=== PATIENT | male | born 1990 | race African-American/Black ===

== ENCOUNTER 2021-05-21 14:24 | Emergency (ER) | payer SELFPAY ==
--- NOTE | 2021-05-21 16:42 | EDM.PDOC ---
ED HPI GENERAL MEDICAL PROBLEM - General Chief Complaint: Lower Extremity Injury/Pain Stated Complaint: RT HEAL MEHREEN Time Seen by Provider: 05/21/21 14:32 Source of Information: Reports: Patient History Limitations: Reports: No Limitations - History of Present Illness INITIAL COMMENTS - FREE TEXT/NARRATIVE: HISTORY AND PHYSICAL: History of present illness: Patient is a 31-year-old male who presents to the emergency room with complaints of right heel pain. He denies any injury, trauma or falls. Denies any numbness, tingling, saddle paresthesia or weakness. He is able to bear weight and perform routine ADLs. Patient denies any fever, chills, headache, change in vision, syncope or near syncope. Denies any chest pain, back pain, shortness of breath or cough. Denies any GI or symptoms. No recent travel or sick contacts. Review of systems: As per history of present illness and below otherwise all systems reviewed and negative. Past medical history: As per history of present illness and as reviewed below otherwise noncontributory. Surgical history: As per history of present illness and as reviewed below otherwise noncontributory. Social history: See social history for further information Family history: As per history of present illness and as reviewed below otherwise noncontributory. Physical exam: General: Well developed and well nourished. Alert and orientated x 3. Nontoxic in appearance and in no acute distress. Vital signs are stable and have been reviewed by me. Nursing notes were reviewed. HEENT: Atraumatic, normocephalic, pupils equal and reactive bilaterally, negative for conjunctival pallor or scleral icterus, mucous membranes moist, TMs normal bilaterally, throat clear, neck supple, nontender, trachea midline. No drooling or trismus noted. No meningeal signs. No hot potato voice noted. Lungs: Clear to auscultation bilaterally. No wheezes, rales, or rhonchi. Chest nontender. Normal work of breathing, no accessory muscles used. Heart: S1S2, regular rate and rhythm without overt murmur, gallops, or rubs. No JVD. No peripheral edema Abdomen: Soft, nondistended, nontender. Skin: Intact, warm, dry. No lesions or rashes noted. Hematologic: No petechiae or purpra. Mucosa appropriate color and normal nail bed color and refill. Extremities: Atraumatic, moves all extremities per self without difficulty or deficits, negative for cords or calf pain. Pinpoint tenderness of medial tubercle. Neurovascular unremarkable. Neuro: Awake, alert, oriented. Cranial nerves II through XII unremarkable. Cerebellum unremarkable. Motor and sensory unremarkable throughout. Exam nonfocal. Psychiatric: Mood and affect are appropriate. Normal thought process. Answering questions appropriately. Please note that the patient was seen and evaluated during the 2019 SARS-CoV-2 novel coronavirus pandemic period. Community viral transmission is ongoing at time of this encounter and the emergency department is operating under pandemic response procedures. Medical Decision Making: Negative for fracture or significant bone lesion. Soft tissues radiographically unremarkable. We discussed plantar fasciitis and treatment options. I have bipin ked with the patient about today's findings, in addition to providing specific details for plan of care. Reassessment at the time of disposition demonstrates that the patient is in no acute distress. The patient is stable for discharge, counseling was provided and we discussed in great detail signs and symptoms that would prompt them to return to the Emergency Department. Medication, follow up a nd supportive care measures were reviewed and discussed. Voices understanding and is agreeable to plan of care. Denies any further questions or concerns at this time. Diagnostics: Calcaneus x-ray Therapeutics: None Prescription: Diclofenac Impression: Plantar fasciitis Plan: 1. You were evaluated today on an emergent basis. Your x-ray shows no evidence of fracture or heel spur. Rest, ice, and supportive shoes with heel/arch support inserts. 2. You can alternate Tylenol and ibuprofen as needed for pain and fever management. 3. We encourage you to follow up with Podiatry in the next few days for re- evaluation and further care/management. 4. If your symptoms should worsen, new symptoms develop or any of the signs and symptoms we discussed should arise please return to the emergency room or call 911 (if needed). Definitive disposition and diagnosis as appropriate pending reevaluation and review of above. Foot Pain Score (Numeric/FACES): 4 - Related Data Allergies Allergy/AdvReac Type Severity Reaction Status Date / Time No Known Allergies Allergy Verified 05/21/21 16:00 Home Meds: Home Meds Diclofenac Sodium [Voltaren] 75 mg PO BIDMEALS PRN #30 tab.cr 05/21/21 [Rx] Social & Family History - Tobacco Use Second Hand Smoke Exposure: No - Caffeine Use Caffeine Use: Reports: None - Recreational Drug Use Recreational Drug Use: No Review of Systems - Review of Systems Review Of Systems: Comprehensive ROS is negative, except as noted in HPI. ED EXAM, GENERAL - Physical Exam Exam: See Below (See dictation) Course - Vital Signs Last Recorded V/S: Last Vital Signs Temp 98 F 05/21/21 15:57 Pulse 67 05/21/21 15:57 Resp 20 05/21/21 15:57 BP 128/93 H 05/21/21 15:57 Pulse Ox 99 05/21/21 15:57 Departure - Departure Time of Disposition: 16:53 Disposition: Home, Self-Care 01 Clinical Impression: Plantar fasciitis of right foot - Discharge Information Prescriptions: Diclofenac Sodium [Voltaren] 75 mg PO BIDMEALS PRN #30 tab.cr PRN Reason: Pain Instructions: Plantar Fasciitis Referrals: PCP,None [Primary Care Provider] - Forms: ED Department Discharge Additional Instructions: The following information is given to patients seen in the emergency department who are being discharged to home. This information is to outline your options for follow-up care. We provide all patients seen in our emergency department with a follow-up referral. The need for follow-up, as well as the timing and circumstances, are variable depending upon the specifics of your emergency department visit. If you don't have a primary care physician on staff, we will provide you with a referral. We always advise you to contact your personal physician following an emergency department visit to inform them of the circumstance of the visit and for follow-up with them and/or the need for any referrals to a consulting specialist. The emergency department will also refer you to a specialist when appropriate. This referral assures that you have the opportunity for follow-up care with a specialist. All of these measure are taken in an effort to provide you with optimal care, which includes your follow-up. Under all circumstances we always encourage you to contact your private physician who remains a resource for coordinating your care. When calling for follow-up care, please make the office aware that this follow-up is from your recent emergency room visit. If for any reason you are refused follow-up, please contact the [facility] Emergency Department at and asked to speak to the emergency department charge nurse. [facility] [address] [place] [address] [facility] [address] [place] [address] Thank you for choosing the [facility] emergency department in [place] for your medical needs today. It was a pleasure caring for you. Today you were seen in the emergency department for heel pain. Your prescription was electronically sent to: [facility] 1. You were evaluated today on an emergent basis. Your x-ray shows no evidence of fracture or heel spur. Rest, ice, and supportive shoes with heel/arch support inserts. 2. You can alternate Tylenol and ibuprofen as needed for pain and fever management. 3. We encourage you to follow up with Podiatry in the next few days for re- evaluation and further care/management. 4. If your symptoms should worsen, new symptoms develop or any of the signs and symptoms we discussed should arise please return to the emergency room or call 911 (if needed). Sepsis Event Note (ED) - Evaluation Sepsis Screening Result: No Definite Risk - Focused Exam Vital Signs: Vital Signs Temp Pulse Resp BP Pulse Ox 05/21/21 15:57 98 F 67 20 128/93 H 99
--- NOTE | 2021-05-21 16:46 | CR ---
INDICATION: Pain after injury. TECHNIQUE: Two views right calcaneus. IMPRESSION: Negative for fracture or significant bone lesion. Soft tissues radiographically unremarkable. Dictated by Hipolito Hernandez MD @ 05/21/2021 4:44:42 PM (Electronically Signed)
== END 2021-05-21 17:03 | disposition home or self-care (01) ==
LOC: MW.ED 14:24
DX: M72.2 Plantar fascial fibromatosis (principal)
CPT/HCPCS: 73650-26-RT; 73650-RT; 99283-25

== ENCOUNTER 2022-04-28 12:57 | Emergency (ER) | payer SELFPAY ==
[2022-04-28] MEDS ORDERED: Ibuprofen 600 MG Tab PO ONE (15:02)
[2022-04-28] MEDS ORDERED: Diphtheria,Pertussis(Acell),Tetanus Vaccine 0.5 ML Syringe IM ONE (15:57)
== END 2022-04-28 16:14 | disposition home or self-care (01) ==
LOC: MW.ED 12:57
DX: S60.042A Contusion of left ring finger without damage to nail, initial encounter (principal); Z88.0 Allergy status to penicillin; Z23 Encounter for immunization; W23.0XXA Caught, crushed, jammed, or pinched between moving objects, initial encounter; Y99.0 Civilian activity done for income or pay
CPT/HCPCS: 73140; 90471; 90715; 99283; A9270; 99282

== ENCOUNTER 2022-10-01 09:00 | Emergency (ER) | payer SELFPAY ==
[2022-10-01] MEDS ORDERED: Ibuprofen 400 MG Tab PO ONE (09:44)
[2022-10-01] MEDS ORDERED: Acetaminophen 325 MG Tab PO ONE (09:44)
== END 2022-10-01 10:28 | disposition home or self-care (01) ==
LOC: MW.ED 09:00
DX: K08.89 Other specified disorders of teeth and supporting structures (principal); Z88.0 Allergy status to penicillin
CPT/HCPCS: 99282; A9270; 99283